=== PATIENT | female | born 1945 | race Caucasian/White ===

== ENCOUNTER → 2021-04-18 11:07 | Outpatient (CLI) | payer MEDICARE, SELFPAY ==
[2021-04-18 12:27] LABS: Absolute Lymphocyte Count 2.37 X10^3/uL (0.83-4.51); Absolute Neutrophil Count 4.3 X10^3/uL (2.0-7.7); Basophil# 0.09 X10^3/uL; Basophil% 1.2 % (0-1); Eosinophils% 2.7 % (0-5); Hematocrit 44.9 % (37-47); Hemoglobin 13.9 g/dL (12.0-15.0); Lymphocyte # 2.37 X10^3/ul (0.83-4.51); Lymphocyte % 31.5 % (19-41); Mean Corpuscular Hgb 27.7 pg (27.0-32.0); Mean Corpuscular Volume 89.4 fL (81-99); Mean Platelet Vol. 9.9 fl (6.2-12.0); Monocyte# 0.58 X10^3/uL; Monocyte% 7.7 % (0-10); NRBC Flagged by Analyzer 0 % (0-5); Neutrophil # 4.26 X10^3/uL (2.7-7.7); Neutrophil % 56.6 % (47-70); Platelet Count 288 K/mm3 (150-450); RBC Distribution Width CV 15.7 % (11.6-14.6); RBC Distribution Width SD 51.7 fl (35.1-43.9); Red Blood Count 5.02 M/mm3 (4.2-5.4); White Blood Count 7.5 K/mm3 (4.4-11.0)
[2021-04-18 13:39] LABS: Anion Gap 5 (5-15); BUN 16 mg/dL (7-18); BUN/Creat Ratio 20.5 RATIO (10-20); Calcium,Total 9.7 mg/dL (8.5-10.1); Chloride 104 mmol/L (98-107); Creatinine, Serum 0.78 mg/dL (0.55-1.02); EST Glomerular Filtration Rate 77 mL/min (>60); Est Glom Filt Rate - Afr Amer 93 mL/min (>60); Glucose 81 mg/dL (74-106); Potassium 4.2 mmol/L (3.5-5.1); Sodium Level 137 mmol/L (136-145); Thyroid Stim Hormone (TSH) 2.19 uIU/mL (0.358-3.74)
== END ==
PROVIDERS: Visit Provider Family Medicine
DX: K25.0 Acute gastric ulcer with hemorrhage (principal); I48.91 Unspecified atrial fibrillation
CPT/HCPCS: 36415; 80048; 84443; 85025

== ENCOUNTER 2021-05-17 11:00 | Outpatient (RCR) | payer MEDICARE, SELFPAY ==
--- NOTE | 2021-04-22 14:47 | HP.PTEVAL_ITS ---
Patient's Visit Information REGIS GUTIERREZ is a 75 year old F referred to Physical Therapy by Dr. Irma Pineda MD with a diagnosis of R shoulder pain. Date of Evaluation: 04/22/21 Physical Therapist: Valdez Gonzalez DPT - Visit Plan Frequency: 1-2x /Week Duration: 2 Weeks Plan: Start with manual inferior glides (light), PROM, pulleys. Add in some scapular strengthening (light as tolerated). No IFC or US due to pacemaker. - Subjective Pt. is here today for her initial evaluation with diagnosis of R shoulder pain. Pt. reports having pain for several months. No mech of injury. No N/T. No xrays at this point in time. She reports even having difficulty lifting her arm at times. Pt. had been taking meloxicam and was doing better, but had a GI bleed and had to be taken off. Increased pain: upper body dressing, sleeping, lifitng, all ADLs, hair grooming. She reports being unable to wash her back as well. Decrease pain: meloxicam. No effect with ice or heat. No previous injuries. Pt. lives with her sister in law in [place], also lives in [facility] (mostly in the winter). Pt. is hopeful reduce her symptoms in order to get back to all recreational and house work activities without increase in symptoms. - Pain R shoulder Pain Intensity (Out of 10): 3 Pain Intensity Range: 3, 10 - Objective POSTURE: pt. has slight rounded shoulders, slight FH posture. Pt. is able to correct with VC. PALPTION: Pt. has some tenderness at scapular musculature. Minimal pain at subacromial space. NEURO: Normal sensation, normal DTR of ada ps and triceps. ROM: L shoulder- full ROM without increase in symptoms. R shoulder- AROM: flexion 125deg increase NW, abd 115deg increase NW, functional ER. MMT: R elbow- 5/5 throughout; shoulder- flexion 4/5 increase NW, abd 4/5 increase NW, ER 4/5 increase NW, IR 4/5 increase NW, ext 5/5 NE. LUE- elbow- 5/5 throughout; shoulder- 5-/5 throughout, no pain with testing. - Special Tests R Shoulder Empty Can - SS: Positive R Shoulder Belly Press - SupScap: Positive R Shoulder Neer - Impingement: Positive R Shoulder Navarro Wyatt - Impingement: Positive R Shoulder Speeds Test - Labrum/Biceps: Positive - Goals Goal 1:: LTG: Pt. to be I with HEP for R shoulder ROM and strengthening. Goal Time Frame: 4-6 Weeks Goal 2:: STG: Pt. to sleep throughout the night without increase in symptoms. Goal Time Frame: 2-4 Weeks Goal 3:: LTG: pt. to have full R shoulder ROM without increase in symptoms. Goal Time Frame: 4-6 Weeks Goal 4:: LTG: pt. to have increased R shoulder strength to at least 4+/5 throughout without increase in symptoms. Goal Time Frame: 4-6 Weeks Goal 5:: LTG: pt. to complete all lead cashier and upper body dressing without increase in symptoms. Goal Time Frame: 4-6 Weeks - Rehabilitation Potential Physical Therapy Diagnosis: Pt. has signs and symptoms consistent with R shoulder pain. She has positive signs for rotator cuff involvement to the extent is hard to tell. She does not have a complete rupture, but has signs suggesting partial tearing. I would like to work on her ROM and slowly add in deltoid and periscapular strengthening in order to reduce the stress to her RTC. Rehabilitation Potential: Good - Anticipated Interventions Patient/Client Instruction: Educate patient on: Condition, Plan of Care, Risk Factors, Benefits of Fitness Program For the Purpose of:: To facilitate caregiver knowledge, To improve self management, To prevent re-injury, To improve ability to perform tasks related to life management, To improve tolerance to ADL's Therapeutic Exercise to Include: Strength training, Power training, Body mechanics, Postural training, Flexibilty training For the Purpose of:: To decrease pain, To decrease swelling/inflammation, To increase ROM, To improve health of tissue, To decrease soft tissue restriction, To increase flexibility/ROM Manual Therapy Techniques to Include: Mobilization, Passive ROM, Soft tissue mobilization For the Purpose of:: To decrease pain, To decrease swelling/inflammation, To increase ROM, To improve nutrient delivery to tissue, To increase oxygenation perfusion, To improve health of tissue, To decrease soft tissue restriction, To increase flexibility/ROM Thank you for the opportunity to evaluate your patient. For Medicare and Medicare HMO plans, please review the plan of care and approve it. It will need to be FAXED BACK to us at [phone] for Medicare purposes. For Medicare only, by signing this I certify the plan of care. Please let me know if there are questions or concerns regarding this plan of care. Physician Signature: Date:
== END 2021-05-17 19:00 | disposition home or self-care (01) ==
LOC: PT 11:00
PROVIDERS: PCP Family Medicine; Referring Provider Family Medicine; Visit Provider Family Medicine
DX: M25.511 Pain in right shoulder (principal)
CPT/HCPCS: 97110; 97161

== ENCOUNTER → 2021-06-02 10:08 | Outpatient (CLI) | payer MEDICARE, SELFPAY | PROVIDERS: PCP Family Medicine; Referring Provider Internal Medicine Pulmonary Disease; Visit Provider Internal Medicine Pulmonary Disease | DX: J47.9 Bronchiectasis, uncomplicated (principal) | CPT/HCPCS: 87015; 87116; 87206 ==

== ENCOUNTER → 2021-06-15 | Outpatient (CLI) | payer MEDICARE, SELFPAY ==
[2021-06-15 15:49] LABS: Absolute Lymphocyte Count 2.32 X10^3/uL (0.83-4.51); Absolute Neutrophil Count 6.8 X10^3/uL (2.0-7.7); Basophil# 0.08 X10^3/uL; Basophil% 0.8 % (0-1); Hematocrit 45.7 % (37-47); Hemoglobin 14.5 g/dL (12.0-15.0); Lymphocyte # 2.32 X10^3/ul (0.83-4.51); Lymphocyte % 23.2 % (19-41); Mean Corp Hgb Conc 31.7 g/dL (32-36); Mean Corpuscular Hgb 27.6 pg (27.0-32.0); Mean Platelet Vol. 8.8 fl (6.2-12.0); Monocyte# 0.58 X10^3/uL; Monocyte% 5.8 % (0-10); NRBC Flagged by Analyzer 0 % (0-5); Neutrophil # 6.78 X10^3/uL (2.7-7.7); Neutrophil % 67.9 % (47-70); Platelet Count 285 K/mm3 (150-450); RBC Distribution Width CV 17.6 % (11.6-14.6); RBC Distribution Width SD 56.1 fl (35.1-43.9); Red Blood Count 5.25 M/mm3 (4.2-5.4)
[2021-06-15 16:13] LABS: Anion Gap 6 (5-15); BUN 11 mg/dL (7-18); BUN/Creat Ratio 13.1 RATIO (10-20); Calcium,Total 9.7 mg/dL (8.5-10.1); Chloride 106 mmol/L (98-107); Creatinine, Serum 0.84 mg/dL (0.55-1.02); EST Glomerular Filtration Rate 71 mL/min (>60); Est Glom Filt Rate - Afr Amer 86 mL/min (>60); Glucose 97 mg/dL (74-106); Sodium Level 140 mmol/L (136-145); Thyroid Stim Hormone (TSH) 0.98 uIU/mL (0.358-3.74)
[2021-06-15 23:44] LABS: Xtra Tube EP Lab EXTRA TUBE
== END | disposition home or self-care (01) ==
PROVIDERS: PCP Family Medicine; Referring Provider Internal Medicine Pulmonary Disease; Visit Provider Internal Medicine Pulmonary Disease
DX: J47.9 Bronchiectasis, uncomplicated (principal); I48.91 Unspecified atrial fibrillation; K25.0 Acute gastric ulcer with hemorrhage
CPT/HCPCS: 36415; 80048; 84443; 85025; 87015; 87116; 87206

== ENCOUNTER → 2021-06-16 | Outpatient (CLI) | payer MEDICARE, SELFPAY | END | disposition home or self-care (01) | LOC: LABSPEC 15:02 | PROVIDERS: PCP Family Medicine; Referring Provider Internal Medicine Pulmonary Disease; Visit Provider Internal Medicine Pulmonary Disease | DX: J47.9 Bronchiectasis, uncomplicated (principal) | CPT/HCPCS: 87015; 87116; 87206 ==